=== PATIENT | female | born 1955 | race Caucasian/White ===

== ENCOUNTER 2022-03-27 21:45 | Emergency (ER) | payer MEDICARE, BC, SELFPAY ==
[2022-03-27 21:58] VITALS: BP 144/80; PULSE 70; RESP 18; TEMP 36.4; O2SAT 100
--- NOTE | 2022-03-27 22:18 | CRLHL7_ITS ---
For Patients: As a result of the Cures Act, medical imaging exams and procedure reports are released immediately into your electronic medical record. You may view this report before your referring provider. If you have questions, please contact your health care provider. Indication: Fall, pain. Technique: Three views of the right wrist. Comparison: None Findings/Impression: Subtle curvilinear lucency at the distal scaphoid seen only on oblique view, may reflect a nondisplaced fracture versus artifact. There is soft tissue swelling overlying the scaphoid, which increases the probability of fracture. Recommend correlation with point tenderness at this region. No additional fracture identified. Dictated by Kelli Posada MD @ 03/27/2022 10:46:36 PM (Electronically Signed)
--- NOTE | 2022-03-27 22:20 | ED_ITS ---
HPI - General Adult General Chief complaint: Extremity Pain/Injury, Upper Stated complaint: Right Wrist Injury Time Seen by Provider: 03/27/22 22:09 Source: patient Mode of arrival: ambulatory Limitations: no limitations History of Present Illness HPI narrative: 66-year-old female coming in today with wrist pain. She was at home when her toe caught on her patio furniture and she fell forward on her forearm on the right side. Complaining of pain on the lateral wrist. Describes pain with flexing and extending at the wrist. Denies other injury. Related Data Home Medications Medication Instructions Recorded Confirmed atorvastatin 10 mg tablet 10 mg PO DAILY 03/27/22 03/27/22 calcium citrate malate-vitamin D3 1 tab PO DAILY 03/27/22 03/27/22 500 mg-200 unit tablet estradiol 0.01% (0.1 mg/gram) 2 g VAGINAL DAILY 03/27/22 03/27/22 vaginal cream (Estrace) lisinopril 20 1 tab PO DAILY 03/27/22 03/27/22 mg-hydrochlorothiazide 12.5 mg tablet Allergies Allergy/AdvReac Type Severity Reaction Status Date / Time No Known Drug Allergies Allergy Verified 03/27/22 22:06 Review of Systems Narrative: Denies any other injury. Did not hit her head or lose consciousness. [facility] Medical History Family history of malignant neoplasm of gastrointestinal tract Hypertension Other hyperlipidemia Postmenopausal atrophic vaginitis Social History Smoking Status: Never smoker Do you use any of these nicotine containing products: None Second hand tobacco smoke exposure: No How often do you have a drink containing alcohol: never AUDIT-C Alcohol total score: 0 Non-prescribed substance use: denies use service: No Exam Narrative: Exam Narrative: Well-nourished well-developed patient in no acute distress. Alert and oriented. Answers questions appropriately. Mood and affect are appropriate. Thoughts are goal oriented and rational. No tangential or magical thinking noted. Patient speaks in full sentences without needing to catch their breath. HEENT: Normocephalic atraumatic. Pupils are equally round reactive to light. Extraocular muscles are intact. Conjunctivae are moist without any icterus noted. Extremities: Right wrist is swollen. There is no ecchymosis or broken skin. Normal radial pulse. She can move her fingers without difficulty. She can make a fist and extend her fingers without difficulty. She has pain with flexion and extension at the wrist. She has tenderness to palpation of the lateral wrist on the dorsal surface and this pain extends almost to the base of the thumb. She does have pain right in the snuffbox. She has no tenderness on the medial side. Skin: Well perfused without any obvious rashes. Const: Vital Signs, click to edit/add: Vital Signs - 24 hr 03/27/22 21:58 Temperature 97.5 F L Pulse Rate [Left P ulse Oximeter] 70 Respiratory Rate 18 Blood Pressure [Le ft Upper Arm] 144/80 H Pulse Oximetry 100 Course Course Hospital Course: Given the amount of swelling and tenderness we did proceed with x-rays which do show a probable fracture of the scaphoid. Vital Signs Vital signs: Initial Vital Signs Temperature 97.5 F L 03/27/22 21:58 Temperature Source Temporal Artery Scan 03/27/22 21:58 Pulse Rate 70 03/27/22 21:58 Pulse Rhythm 03/27/22 21:58 Respiratory Rate 18 03/27/22 21:58 Blood Pressure 144/80 H 03/27/22 21:58 Blood Pressure Mean 101 03/27/22 21:58 Blood Pressure Position Sitting 03/27/22 21:58 Pulse Oximetry 100 03/27/22 21:58 Oxygen Delivery Method 03/27/22 21:58 Vital Signs Temperature 97.5 F L 03/27/22 21:58 Pulse Rate 70 03/27/22 21:58 Respiratory Rate 18 03/27/22 21:58 Blood Pressure 144/80 H 03/27/22 21:58 Pulse Oximetry 100 03/27/22 21:58 Temperature 97.5 F L 03/27/22 21:58 Pulse Rate 70 03/27/22 21:58 Respiratory Rate 18 03/27/22 21:58 Blood Pressure 144/80 H 03/27/22 21:58 Pulse Oximetry 100 03/27/22 21:58 Medical Decision Making MDM Narrative Medical decision making narrative: Probable scaphoid fracture. Patient will be placed in a thumb spica splint today given the amount of swelling and she has. She will follow-up with orthopedics for further management in the next few days. Imaging Data Wrist x-ray: Attestation: I have reviewed the pertinent imaging results. Radiologist's impression: Three views of the right wrist. Comparison: None Findings/Impression: Subtle curvilinear lucency at the distal scaphoid seen only on oblique view, may reflect a nondisplaced fracture versus artifact. There is soft tissue swelling overlying the scaphoid, which increases the probability of fracture. Recommend correlation with point tenderness at this region. No additional fracture identified. Discharge Plan Discharge Clinical Impression: Fracture of scaphoid Patient Disposition: Home, Self-Care Condition: Stable Instructions: Scaphoid Fracture (ED) Additional Instructions: Wear splint at all times. Follow up with Orthopedics as scheduled. Okay to use Tylenol or ibuprofen as needed for discomfort. Prescriptions: No Action atorvastatin 10 mg tablet 10 mg PO DAILY 0RF estradiol [Estrace] 0.01 % (0.1 mg/gram) cream 2 g vaginal DAILY 0RF Rx Instructions: for 7 days lisinopril-hydrochlorothiazide 20-12.5 mg tablet 1 tab PO DAILY 0RF calcium citrate malate-vit D3 500-200 mg-unit tablet 1 tab PO DAILY 0RF Follow Up/Referrals: Vannesa Dye MD [Primary Care Provider] - Stand Alone Forms: [employer] Info Instructions
== END 2022-03-27 23:19 | disposition home or self-care (01) ==
LOC: ED 23:10
PROVIDERS: Emergency Provider Family Medicine; PCP Family Medicine
DX: S62.001A Unspecified fracture of navicular [scaphoid] bone of right wrist, initial encounter for closed fracture (principal); W01.0XXA Fall on same level from slipping, tripping and stumbling without subsequent striking against object, initial encounter
CPT/HCPCS: 29125; 73110; 99283; 99284

== ENCOUNTER 2025-04-19 08:45 | Outpatient (CLI) | payer MEDICARE, BC, SELFPAY | END 2025-04-19 08:46 | disposition home or self-care (01) | LOC: NFLDREF 04-24 12:28 | PROVIDERS: PCP Family Medicine; Referring Provider Family Medicine; Visit Provider Physician Assistant Surgical | DX: N30.01 Acute cystitis with hematuria (principal); B96.20 Unspecified Escherichia coli [E. coli] as the cause of diseases classified elsewhere | CPT/HCPCS: 87086 ==

== ENCOUNTER 2025-05-20 12:07 | Outpatient (CLI) | payer MEDICARE, BC, SELFPAY | END 2025-05-20 12:08 | disposition home or self-care (01) | LOC: NFLDREF 05-23 13:03 | PROVIDERS: PCP Family Medicine; Referring Provider Family Medicine; Visit Provider Physician Assistant | DX: N30.01 Acute cystitis with hematuria (principal) | CPT/HCPCS: 87086 ==